=== PATIENT | male | born 1990 | race Caucasian/White ===

== ENCOUNTER 2018-04-28 14:54 | Emergency (ER) | payer OTHER ==
[~2018-04-28] VITALS: Ht 172.7 cm; Wt 75.3 kg
== END 2018-04-28 19:38 | disposition home or self-care (01) ==
LOC: ER 14:54
DX: R10.11 Right upper quadrant pain (principal); R10.32 Left lower quadrant pain

== ENCOUNTER 2018-05-25 04:55 | Emergency (ER) | payer OTHER ==
[~2018-05-25] VITALS: Ht 172.7 cm; Wt 72.6 kg
[2018-05-25] MEDS ORDERED: ZANTAC300 MG PO (12:53)
[2018-05-25] MEDS ORDERED: LEVSIN/SL0.125 MG PO (12:53)
[2018-05-25] MEDS ORDERED: INTESTINEX680 M1 PO (12:53)
== END 2018-05-25 13:23 | disposition home or self-care (01) ==
LOC: ER 04:55
DX: K92.1 Melena (principal); R10.13 Epigastric pain

== ENCOUNTER → 2019-09-08 | Emergency (ER) | payer OTHER ==
[~2019-09-08] VITALS: Ht 172.7 cm; Wt 72.6 kg
[~2019-09-08] MED LIST: INTESTINEX680 M1 PO; LEVSIN/SL0.125 MG PO; ZANTAC300 MG PO
== END | disposition left against medical advice (07) ==
LOC: ER 03:59
DX: Z53.20 Procedure and treatment not carried out because of patient's decision for unspecified reasons (principal)